=== PATIENT | male | born 1945 | race Caucasian/White ===

== ENCOUNTER 2017-12-31 05:32 | Day surgery (SDC) | payer MEDICARE ==
[~2017-12-31] VITALS: Ht 180.3 cm; Wt 106.6 kg
[~2017-12-31 05:32] MED LIST: BAYER ASPIRIN E81 MG PO; CIPRO250 MG PO; CRESTOR20 MG PO; CRESTOR5 MG PO; FISH OIL1200 M1 PO; FLAGYL500 MG PO; LIPITOR20 MG PO; LISINOPRIL20 MG PO; LOSARTAN POTASS50 MG PO; PERCOCET1 TA4 PO; PLAVIX75 MG PO; PRILOSEC20 MG PO; PROTONIX40 M2 PO; VITAMIN D31000 UNI1 PO; [UNRECOGNIZED DRUG - OTHER] PO
[2017-12-31 08:19] VITALS: BP 119/69
== END 2017-12-31 08:27 | disposition home or self-care (01) ==
LOC: ENDO 05:32
PROVIDERS: ATTEND Surgery
PROC: 0DBN8ZX Excision of Sigmoid Colon, Via Natural or Artificial Opening Endoscopic, Diagnostic (ICD-10-PCS; principal; 2017-12-31)
DX: Z12.11 Encounter for screening for malignant neoplasm of colon (principal); D12.5 Benign neoplasm of sigmoid colon; Q43.8 Other specified congenital malformations of intestine; I10 Essential (primary) hypertension; I25.10 Atherosclerotic heart disease of native coronary artery without angina pectoris; E78.5 Hyperlipidemia, unspecified; K57.30 Diverticulosis of large intestine without perforation or abscess without bleeding; Z95.1 Presence of aortocoronary bypass graft

== ENCOUNTER → 2018-06-15 | Outpatient (REF) | payer MEDICARE | END | disposition home or self-care (01) | LOC: ULTRASND 09:24 | PROVIDERS: ATTEND Internal Medicine | DX: M79.604 Pain in right leg (principal); I73.9 Peripheral vascular disease, unspecified ==

== ENCOUNTER 2020-09-06 20:57 | Inpatient (IN) | payer MEDICARE ==
[~2020-09-06] VITALS: Ht 177.8 cm; Wt 101.0 kg
--- NOTE | 2020-09-06 21:15 | NUR ---
PATIENT TO ROOM FOR TRIAGE.
--- NOTE | 2020-09-06 21:41 | NUR ---
PATIENT RESTING QUIETLY,STATES HE FEELS BETTER. AT BEDSIDE.
[2020-09-06 21:45] LABS: HEMATOCRIT 38.8 % (39.0-50.0); HEMOGLOBIN 12.5 g/dl (14.0-18.0); IMMATURE GRANULOCYTES 0.5 % (0.0-5.0); MEAN CORPUSCULAR HGB CONC 32.2 g/dL CAL (32.0-36.0); NEUT# 3.25 thou/uL (1.82-7.42); RED BLOOD COUNT 4.31 mill/uL (4.70-6.10); RED CELL DISTRI WIDTH 13.2 % (11.5-15.5)
[2020-09-06 21:57] LABS: ALBUMIN 3.4 g/dL (3.2-5.0); ALKALINE PHOSPHATASE 79 u/l (38-126); ANION GAP 11 (6-22 (CALC)); BILIRUBIN, TOTAL 0.5 mg/dL (0.0-1.4); BUN 20 mg/dL (8-23); BUN/CREATININE RATIO 14 (12-20 (CALC)); CARBON DIOXIDE 23 mmol/l (22-30); CHLORIDE 106 mmol/l (95-108); CREATININE 1.5 mg/dL (0.7-1.3); GFR 46 ML/MIN (>=60 (CALC)); GFR FOR AFR.AMER. 55 ML/MIN (>=60 (CALC)); POTASSIUM 4.4 mmol/l (3.5-5.1); SODIUM 135 mmol/l (137-146); TOTAL PROTEIN 6.6 g/dL (6.3-8.2)
[2020-09-06 21:59] LABS: D-DIMER 2.31 mg/L (0.19-0.60)
[2020-09-06 22:00] LABS: INTERNATIONAL NORMALIZED RATIO 1.1 RATIO (0.7-1.3)
[2020-09-06 22:03] LABS: SGOT/AST 71 u/l (19-48)
[2020-09-06 22:09] LABS: MYOGLOBIN 273 ng/mL (0 - 121)
--- NOTE | 2020-09-06 22:33 | NUR ---
PT IV BOLUS STARTED. RECHECK OF TEMP WNL. NO S/S OF DISCOMFORT.
[2020-09-07] MEDS ORDERED: COQ-1030 M1 PO (00:51)
[2020-09-07] MEDS ORDERED: B121000 MC1 (00:52)
--- NOTE | 2020-09-07 00:57 | NUR ---
PT RESTING. AT BEDSIDE. VSS. MEDS RECONCILED. ATTEMPTED TO CALL REPORT. SONIA WILL CALL BACK.
--- NOTE | 2020-09-07 01:11 | NUR ---
REPORT TO SONIA/MED-SURG.
--- NOTE | 2020-09-07 01:15 | NUR ---
PT TO FLOOR VIA W/C WITH O2 @ 4 LPM NC. TO FLOOR BY WILMA ALMEIDA. TO HOME. AWARE OF VISITING RESTRICTIONS.
[2020-09-07 01:25] VITALS: BP 111/80
--- NOTE | 2020-09-07 01:45 | NUR ---
PHYSICAL ASSESMENT COMPLETE. PT CURRENTLY DENIES PAIN OR DISCOMFORT. SCHEDULED MEDICATIONS AND PRN MEDICATION ADMINISTERED, SEE E-MAR. PT PLACE ON 4 LITERS OF O2 AND STATING AT 92 %. PT DENIES ANY NEEDS AT THIS TIME. PLAN OF CARE REVIEWED, PT DENIES QUESTIONS, VERBALIZES UNDERSTANDING. ITEMS WITHIN REACH, BED LOCKED IN LOW POSITION W/ BEDRAILS UP X2. CALL KIRK WITHIN REACH, AGREES TO CALL PRN.
--- NOTE | 2020-09-07 04:01 | NUR ---
PT RESTING IN BED, NO SIGNS OF DISTRESS NOTED, PT VOICES NO NEEDS OR COMPLAINTS AT THIS TIME. CALL LIGHT IN REACH, CONTINUE TO MONITOR.
[2020-09-07 04:30] VITALS: BP 114/58
[2020-09-07 08:59] VITALS: BP 118/61
--- NOTE | 2020-09-07 08:59 | NUR ---
PT SITTING IN BED. A&O X3. O2 VIA NC @4L IN PLACE. O2 SUSTAINING 85-86%. EXTENSION TUBING REMOVED. O2 CHANGED TO HIGH FLOW AT 9L HUMIDIFIED. PT SUSTAINING O2 AT 90-92% . NON PRODUCTIVE COUGH NOTED WITH EXCERTIONAL SOB. PT ENCOURAGED TO PRONE, PT VERBALIZED UNDERSTANDING. URINAL GIVEN TO PT TO CONSERVE ENERGY. ASSESSMENT COMPLETED. DISCUSSED POC. CALL LIGHT IN REACH. CONTINUE TO MONITOR.
--- NOTE | 2020-09-07 09:40 | NUR ---
DR HUNT AND Jesse CASSIDY APRN AT BEDSIDE DISCUSSING POC
--- NOTE | 2020-09-07 11:14 | NUR ---
pt sitting in bed. no distress noted. continue to monitor.
[2020-09-07 15:15] VITALS: BP 105/52
[2020-09-07 19:20] VITALS: BP 117/63
--- NOTE | 2020-09-07 20:00 | NUR ---
UPON ENTERING ROOM PT LAYING IN BED, WATCHING TV. PHYSICAL ASSESMENT COMPLETE. RESPIRATION REGULAR AND UNLABORED. LUNG SOUNDS CLEAR AND SLIGHLTY DIMINISHED. SP02 92% ON 02 @ 9L/MIN VIA NC. PT REPORTS NON-PRODUCTIVE COUGH. PRN ROBITUSSIN ADMINISTERED WITH SCHEDULED MEDICATIONS. SEE E-MAR. DENIES PAIN OR DISCOMFORT AT THIS TIME. RESPIRATIONS REGULAR AND UNLABORED. TEACHING DONE ON INCENTIVE SPIROMETER. PT DEMONSTRATES PROPER USE. PLAN OF CARE REVIEWED, PT VERBALIZES UNDERSTANDING AND DENIES QUESTIONS. DENIES NEEDS AT THIS TIME. CALL KIRK WITHIN REACH, AGREES TO CALL PRN.
[2020-09-08] VITALS (11 sets, daily range): BP systolic 112–162; BP diastolic 57–79
--- NOTE | 2020-09-08 00:10 | NUR ---
PT REPORTS SOB, SAYING "I CAN'T BREATHE". SPO2 79%. PT EXHIBITS INCREASE WORK OF BREATHING. PT REPORTS SYMPTOMS BEGAN WHEN SIITTING UP TO SIDE OF BED TO USE URINAL. O2 INCREASED TO 12L/MIN VIA HIGH FLOW NASAL CANNULA. PT ENCOURAGED TO DEEP BREATHE. SPO2 INCREASES TO 91-92%. EXHIBITS DECREASE WORK OF BREATHING. RESPIRATIONS REGULAR AND UNLABORED. PT NO LONGER VOICES DISTRESS. PT ENCOURAGED TO LAY IN PRONE POSITION. PT DECLINES. PT AGREES TO CALL PRN, CALL KIRK WITHIN REACH.
--- NOTE | 2020-09-08 04:31 | NUR ---
PT REQUESTS ASSISTANCE TO SIT UP ON SIDE OF BED TO USE URINAL. PT ASSITED TO SIT UP. 500ML DARK YELLOW URINE EMPTIED FROM URINAL. PT BECOMES SOB. ATTEMPTS TO LAY PRONE. PT UNABLE TO TOLERATE AND RETURNS TO SUPINE POSITION. HOB ELEVATED. PT'S SPO2 IN THE 70s FOR SEVERAL MINUTES BEFORE BEGINING TO INCREASE AND SOB BEGINNING TO LESSEN. SPO2 UP TO 90-91%. PT COUGHING A LOT, ROBITUSSIN ADMINISTERED. SEE E-MAR.
[2020-09-08 05:35] LABS: HEMATOCRIT 44.4 % (39.0-50.0); HEMOGLOBIN 14.2 g/dl (14.0-18.0); IMMATURE GRANULOCYTES 0.8 % (0.0-5.0); MEAN CELL VOLUME 91.2 fL CALC (80.0-100.0); MEAN CORPUSCULAR HGB 29.2 pG CALC (26.0-32.0); NEUT# 10.68 thou/uL (1.82-7.42); RED BLOOD COUNT 4.87 mill/uL (4.70-6.10); RED CELL DISTRI WIDTH 13.4 % (11.5-15.5)
[2020-09-08 05:46] LABS: ALBUMIN 3.4 g/dL (3.2-5.0); ALKALINE PHOSPHATASE 103 u/l (38-126); BILIRUBIN, TOTAL 0.6 mg/dL (0.0-1.4); BUN 30 mg/dL (8-23); BUN/CREATININE RATIO 25 (12-20 (CALC)); CARBON DIOXIDE 26 mmol/l (22-30); CHLORIDE 109 mmol/l (95-108); CREATININE 1.2 mg/dL (0.7-1.3); GFR 59 ML/MIN (>=60 (CALC)); GFR FOR AFR.AMER. > 60 ML/MIN (>=60 (CALC)); POTASSIUM 4.3 mmol/l (3.5-5.1); TOTAL PROTEIN 6.4 g/dL (6.3-8.2)
[2020-09-08 05:48] LABS: ANION GAP 11 (6-22 (CALC)); SGOT/AST 158 u/l (19-48); SODIUM 142 mmol/l (137-146)
--- NOTE | 2020-09-08 07:44 | NUR ---
RECIEVED REPORT FROM WILMA UMANA. PT RESTING IN SEMI FOWLERS POSITION UPON ENTERING ROOM. INTRODUCED SELF TO PT AND DISCUSSED POC. PT IS A/O X3. ASSESSMEN AND VITALS COMPLETED. RESPIRATIONS ARE EVEN AND UNLABORED ON 12L HIGH FLOW NC. LUNG SOUNDS ARE CLEAR BUT DIMINISHED.I.S AT BEDSIDE. PT EDUCATED ON USAGE, PT VERBALIZED UNDERSTANDING. HEART RHYTHM IS NORMAL. BOWEL SOUNDS ARE ACTIVE IN ALL QUADRANTS.#20G IN RAC FLUSHED, SITE APPEARS HEALTHY AND PATENT. PT COMPLAINS OF NAUSESA, PT TO BE MEDICATED PER EMAR. PT DENIES OF ANYOTHER DISCOMFORTS. ALL SAFTEY PRECAUTIONS ARE IN PLACE WITH CALL LIGHT IN REACH. AIR/CONTACT PRECAUTIONS IN PLACE. WILL CONTINUE TO MONITOR
--- NOTE | 2020-09-08 10:15 | NUR ---
CPAP AND HEARING AIDS BROUGHT IN BY FAMILY. PLACED AT BEDSIDE
--- NOTE | 2020-09-08 11:03 | NUR ---
PT OXYGEN SAT 88% ON 12L HIGH FLOW NC. OXYGEN INCREASED TO 15L HIGH FLOW NC. OXYGEN SAT 92%. PT DENIES ANY INCREASE SOB AT THIS TIME. MD TO BE NOTFIED. ALL SAFETY PRECAUTIONS ARE IN PLACE WITH CALL LIGHT IN REACH. WILL CONTINUE TO MONITOR.
--- NOTE | 2020-09-08 11:26 | NUR ---
ESPINOZA SALVADORRP NOTIFIED OF PT OXYGEN SAT. ORDERS FOR ABG. RESPIRATIONS REMAINS EVEN AND UNLABORED ON 15L NC. PT DENIES OF ANY INCREASED SOB OR DISCOMFORTS. IV ANTIBIOTICS INFUSING WITH EASE, SITE APPEARS HEALTHY AND PATENT. ALL SAFETY AND IAOLATION PRECAUTIONS ARE IN PLACE WIHT CALL LIGHT IN REACH. WILL CONTINUE TO MONITOR
--- NOTE | 2020-09-08 12:55 | NUR ---
DR HUNT AT BEDSIDE DISCUSSING POC. ORDERS FOR TRANSFER TO ICU
--- NOTE | 2020-09-08 12:57 | NUR ---
ICU BED 6 OBTAINED FOR PT TRANSFER.
--- NOTE | 2020-09-08 13:24 | NUR ---
REPORT CALLED TO AYAH LIM.
--- NOTE | 2020-09-08 13:30 | NUR ---
PT TRANSPORTED TO BED 6 ICU VIA BED IN STABLE CONDITION ACCOMPAINED BY MANAGER PRIVACY AND SASCHA SAMS. ALL BELONGINGS TRANSPORTED WITH PT INCLUDING CPAP AND HEARING AIDS.
--- NOTE | 2020-09-08 13:35 | NUR ---
RECEIVED PT FROM MED SURG, VIA BED WITH 15 LITERS OF O2. TOLERATING WELL. FAMILY NOTIFIED BY PT. CONTINUE TO OBSERVE AND MONITOR.
--- NOTE | 2020-09-08 14:30 | NUR ---
PT TRANSFERRED TO A CHAIR, AFTER ANTIONETTE Jimenez FROM HOME [facility] CAME AND BROUGHT ONE. FAMILY INQUIRED ABOUT A CHAIR. INFORMED THE PT SOON A CHAIR WAS AVAILABLE THEN HE WOULD GET THE CHAIR. PT VERBALIZED UNDERSTANDING.
--- NOTE | 2020-09-08 16:24 | NUR ---
PT IS SITTING IN THE CHAIR NO DISTRESS NOTED. IV SITE IS FREE FROM REDNESS OR EDEMA. O2 @ 15 LITERS HIGH FLOW.
--- NOTE | 2020-09-08 17:50 | NUR ---
PT RESTING WITH EYES CLOSED NO DISTRESS NOTED. IV SITE IS FREE FROM REDNESS OR EDEMA.
--- NOTE | 2020-09-08 19:55 | NUR ---
PATIENT IS AWAKE, ORIENTED X4, IS HARD OF HEARING. NURSE ASSESSMENT PERFORMED. ENCOURAGED PURSED LIP BREATHING AND PRONE POSITIONE, PATIENT WAS ASSISTED WITH PRONE POSITIONING. POC DISCUSSED. PATIENT DOES DESAT TO 64% WITH EXERTION, BECOMES SOB, IS ON 15 L/MIN HIGH FLOW NC H. NO COMPLAINTS OF PAIN. DOES HAVE A NONPRODUCTIVE COUGH. LAC 20 G IV INTACT, SALINE LOCKED. SR ON TELEMETRY. BP WNL. POC DISCUSSED. CALL LIGHT WITHIN REACH.
--- NOTE | 2020-09-08 23:15 | NUR ---
PATIENT REPORTED HE CAN NO LONGER LAY PRONE AND LAYS WITH HO 30 DEGREES, HAD COMPLAINED HE COULD NOT SLEEP, SONATA AND ROBITUSSIN GIVEN FOR HIS COUGH. WAS PULLED UP WITH ASSIST X2, IN HIGH AYERS'S, O2 78%, SLOWLY INCREASES TO 80'S, WILL CONTINUE TO MONITOR.
--- NOTE | 2020-09-08 23:31 | NUR ---
CALLED RT MARCELO TO NOTIFY PATIENT'S O2 84%-85%, AFTER LAYING IN HIGH AYERS'S FROM PRONE POSITION, RT MARCELO WILL COME TO ASSESS PATIENT.
--- NOTE | 2020-09-08 23:35 | NUR ---
RT MARCELO IN ROOM
--- NOTE | 2020-09-08 23:56 | NUR ---
RT MARCELO PLACED PATIENT ON PATIENT'S CPAP FROM HOME, O2 NOW 94%.
[2020-09-09] VITALS (7 sets, daily range): BP systolic 108–158; BP diastolic 55–75
--- NOTE | 2020-09-09 01:41 | NUR ---
PATIENT GETS OUT OF BED, PULLS ALL OF WINDOWS 7 DEPLOYMENT LEAD EQUIPMENT OFF, PULLS IV OFF. HE WAS SOB AND TACHYPNEIC. HAD TAKEN HIS CPAP OFF. HE REPORTED HE HAD TO "PEE," AND NEEDED TO GET UP. PATIENT USED THE URINAL. I EXPLAINED TO HIM THE IMPORTANCE OF USING CALL LIGHT FOR ASSISTANCE AT ALL TIMES, ESPECIALLY BECAUSE HE DESATS VERY QUICKLY TO 70'S, WE HAVE TO MAKE SURE HE HAS OXYGEN SUPPORT. PATIENT UNDERSTNDS AND AGREES. NEW IV PLACED ON R-HAND 22 G, SLAINE LOCKED. URINAL AT BEDSIDE TABLE WTHIN REACH, CPAP PLACED BACK ON, O2 SAT NOW 93%. NO OTHER NEEDS AT THSI TIME. CALL LIGHT WITHIN REACH.
--- NOTE | 2020-09-09 03:44 | NUR ---
PATIENT TAKES OFF CPAP MASK, DESATS TO 60'S. COMPLAINS OF NAUSEA, ZOFRAN GIVEN. NAUSEA HAS DECREASED, PATIENT AGREES TO PLACE CPAP MASK ON SINCE HE WAS ONLY SATTING 85% ON HIGH FLOW NC AT 15 L/MIN.
[2020-09-09 05:53] LABS: HEMATOCRIT 42.8 % (39.0-50.0); HEMOGLOBIN 13.3 g/dl (14.0-18.0); IMMATURE GRANULOCYTES 1.1 % (0.0-5.0); MEAN CELL VOLUME 91.1 fL CALC (80.0-100.0); MEAN CORPUSCULAR HGB 28.3 pG CALC (26.0-32.0); MEAN CORPUSCULAR HGB CONC 31.1 g/dL CAL (32.0-36.0); NEUT# 9.86 thou/uL (1.82-7.42); RED BLOOD COUNT 4.7 mill/uL (4.70-6.10); RED CELL DISTRI WIDTH 13.4 % (11.5-15.5)
--- NOTE | 2020-09-09 06:16 | NUR ---
PATIENT IS ON VAPOTHERM NOW, HE REQUESTED TO BE OFF THE CPAP. SETTINGS ARE 30 LITERS/MIN AND 100% FIO2, O2 SAT 97%. NO OTHER NEEDS OR RQUESTS AT THIS TIME.
[2020-09-09 06:20] LABS: ALKALINE PHOSPHATASE 109 u/l (38-126); ANION GAP 10 (6-22 (CALC)); BILIRUBIN, TOTAL 0.7 mg/dL (0.0-1.4); BUN 31 mg/dL (8-23); BUN/CREATININE RATIO 29 (12-20 (CALC)); CARBON DIOXIDE 29 mmol/l (22-30); CHLORIDE 108 mmol/l (95-108); CREATININE 1.1 mg/dL (0.7-1.3); GFR > 60 ML/MIN (>=60 (CALC)); GFR FOR AFR.AMER. > 60 ML/MIN (>=60 (CALC)); POTASSIUM 4.9 mmol/l (3.5-5.1); SGOT/AST 111 u/l (19-48); SODIUM 143 mmol/l (137-146); TOTAL PROTEIN 5.9 g/dL (6.3-8.2)
--- NOTE | 2020-09-09 07:18 | NUR ---
SPOKE WITH [employer]'S DAUGHTER INQUIRED ABOUT PT.
--- NOTE | 2020-09-09 07:25 | NUR ---
PT PLACED IN A CHAIR. FAMILY CALLING AND PT WILL CALL BACK. BASHIR RESPIRATORY IN TO MOVE THE VAPOTHERM.
--- NOTE | 2020-09-09 07:25 | NUR ---
ASSESSMENT IS COMPLTED; IV SITE IS FREE FROM REDNESS OR EDEMA. HR IS REG,PULSE ARE STRONG X4, ABD IS SOFT WITH ACTIVE BS. BREATH SOUNDS ARE CLEAR AND DMINISHED. O2 WITH VAPOTHERM AT 30%-100%. CONTINUE TO OSBERVE AND MONITOR.
--- NOTE | 2020-09-09 09:25 | NUR ---
DR HUNT IN TO VISIT WITHPT
--- NOTE | 2020-09-09 10:05 | NUR ---
PT CONTINUES IN THE CHAIR. NO DISTRESS NOTED. IV SITE IS FREE FROM REDNESS OR EDEMA.
--- NOTE | 2020-09-09 12:15 | NUR ---
PT IS RELAXING IN BED WITH NO DISTRESS NOTED IV SITE IS FREE FROM REDNESS OR EDEMA.
--- NOTE | 2020-09-09 13:05 | NUR ---
REPORT REC FROM GWEN POON
--- NOTE | 2020-09-09 13:25 | NUR ---
PT CARE RESUMED BY THIS UNDERGROUND TRUCK OPERATOR. A&O X3. NO DISTRESS NOTED. FASH SLIGHTLY FLUSHED IN APPEARANCE, CURRENTLY AFEBRILE. O2 VIA NC @30L 100% VAPOTHERM IN PLACE. NO NEEDS AT THIS TIME. CALL LIGHT IN REACH. CONTINUE TO MONITOR.
--- NOTE | 2020-09-09 17:34 | NUR ---
PT SITTING IN RECLINER. NO NEEDS OR DISTRESS AT THIS TIME. CALL LIGHT IN REACH. CONTINUE TO MONITOR.
--- NOTE | 2020-09-09 19:20 | NUR ---
sitting in bedside chair. nad. o2 cont per vapotherm. cafeteria monitor shows sinus rhythm hr 76. #22 rt hand saline lock. voided per urinal. fall & air/contact precautions cont. assisted to bed per request. pt became sob & o2 sat dropped to 80% with o2 on. after few minutes o2 sat increased to 93%. instructed pt about prone position. pt declined @ present but verbalized understanding.
--- NOTE | 2020-09-09 20:45 | NUR ---
assisted pt to prone position per request.
--- NOTE | 2020-09-09 22:00 | NUR ---
pt requested to void then sleep on back. stood to void then back to bed. o2 sat dropped to 80%. rt notified & checked pt. after few minutes of rest o2 increased to 93%.
[2020-09-10] VITALS (10 sets, daily range): BP systolic 116–141; BP diastolic 58–73
--- NOTE | 2020-09-10 00:01 | NUR ---
eyes closed. nad. desats with any activity. environmental monitoring specialist shows sinus rhythm pjcs hr 70.
--- NOTE | 2020-09-10 02:00 | NUR ---
resting quietly. o2 cont per vapotherm. quality assurance monitor shows sinus rhythm pjc's hr 62.
--- NOTE | 2020-09-10 03:45 | NUR ---
stood to void then returns to bed. desats quickly to 82%. after resting pulse ox returns to 93%.
--- NOTE | 2020-09-10 04:35 | NUR ---
pulse ox shows 65%. entered pts room. pt sitting on side of bed. pt had voided per urinal. nasal cannula was on floor & was replaced. after resting for few minutes pulse ox was 91%. pt requested to get in chair. assisted to chair. pulse ox dropped to 84%. after resting pulse ox increased to 93%. instructed pt strongly to keep o2 on @ ALL times. pt verbalized understanding.
--- NOTE | 2020-09-10 05:30 | NUR ---
lab here. blood drawn.
[2020-09-10 05:59] LABS: HEMATOCRIT 41.6 % (39.0-50.0); HEMOGLOBIN 13.3 g/dl (14.0-18.0); IMMATURE GRANULOCYTES 0.9 % (0.0-5.0); MEAN CELL VOLUME 90.2 fL CALC (80.0-100.0); MEAN CORPUSCULAR HGB 28.9 pG CALC (26.0-32.0); NEUT# 8.97 thou/uL (1.82-7.42); RED BLOOD COUNT 4.61 mill/uL (4.70-6.10); RED CELL DISTRI WIDTH 13.4 % (11.5-15.5)
[2020-09-10 06:18] LABS: ANION GAP 11 (6-22 (CALC)); BUN 37 mg/dL (8-23); BUN/CREATININE RATIO 37 (12-20 (CALC)); C-REACTIVE PROTEIN 6.5 mg/dL (0-0.9); CARBON DIOXIDE 29 mmol/l (22-30); CHLORIDE 106 mmol/l (95-108); GFR > 60 ML/MIN (>=60 (CALC)); GFR FOR AFR.AMER. > 60 ML/MIN (>=60 (CALC)); POTASSIUM 4.7 mmol/l (3.5-5.1); SODIUM 141 mmol/l (137-146)
--- NOTE | 2020-09-10 06:58 | NUR ---
REPORT REC FROM MIRZA POON
--- NOTE | 2020-09-10 07:00 | NUR ---
PT SITTING IN RECLINER. A&O X3. NO DISTRESS NOTED. O2 VIA NC @30 L 100% HUMIDIFIED VAPOTHERM IN PLACE O2 SUSTAINING 92-96%. EXCERTIONAL SOB NOTED AND ALSO REPORTED. CLEAR/DIMINISHED BREATH SOUNDS HEARD DURING AUSCULTATION. FACE SLIGHTLY FLUSHED IN APPEARANCE BUT AFEBRILE AT THIS TIME.#22 RH PATENT WITH HEALTHY APPEARANCE. PT DENIES ANY PAIN AT THIS TIME. TRACE EDEMA NOTED TO BILATERAL FEET, PT REPORTS THIS FINDING "NORMAL" FOR HIM. ASSESSMENT COMPLETED. DISCUSSED POC. CALL LIGHT LEFT WITHIN REACH. CONTINUE TO MONITOR.
--- NOTE | 2020-09-10 09:33 | NUR ---
PT SITTING IN RECLINER. NO DISTRESS NOTED. CALL LIGHT IN REACH, CONTINUE TO MONITOR.
--- NOTE | 2020-09-10 09:57 | NUR ---
DR HUNT AT BEDSIDE
--- NOTE | 2020-09-10 12:20 | NUR ---
PT SITTING IN RECLINER, PT INSTRUCTED TO DEEP BREATHE DUE TO LOW O2 READING. PT REPORTS EXCERTIONAL SOB WHEN HE GOT UP OUT OF THE BED INTO THE RECLINER. O2 CURRENTLY NOW 95%. PT REPORTS FEELING "LESS SOB NOW". CONTINUE TO MONITOR.
--- NOTE | 2020-09-10 16:23 | NUR ---
PT CURRENTLY 85% WITH VAPOTHERM . DAYANARA RT AT BEDSIDE. PT UP TO 40L WITH 100% VAPOTHERM. PT CURRENTLY 92%. WILL CONTINUE TO MONITOR
--- NOTE | 2020-09-10 16:26 | NUR ---
INCREASED FLOW TO 40L DUE TO SATS RUNNING IN THE 80'S. SPO2 INCREASED TO 92% AFTER CHANGE.
--- NOTE | 2020-09-10 18:05 | NUR ---
PT SITTING IN RECLINER EATING DINNER. NO DISTRESS NOTED. O2 SUSTAINING 98% WITH 40 L 100%. CALL LIGHT IN REACH. CONTINUE TO MONITOR.
--- NOTE | 2020-09-10 20:00 | NUR ---
PT SITTING IN CHAIR WATCHING TV. DENIES PAIN, SOB, OR DISTRESS. PT ASKED TO GO BACK IN BED. WHEN TRANSFERRING TO BED PT STARTING CONTINUOUSLY COUGHING AND DESATTED TO 65%. NURSE COACHED PT TO SLOW HIS BREATHING AND TO INHALE THROUGH HIS NOSE WITH SUPPORT OF THE OXYGEN. IT TOOK HIM APPROXIMATELY 15 MINS TO RECOVER SITTING UPRIGHT ON SIDE OF BED. EDUCATED PT ON THE IMPORTANCE OF PRONE POSITION AND ENCOURAGED HIM TO TAKE IT ONE STEP AT A TIME (SITTING, SIDEWAYS, PRONE), TO HELP KEEP SATS UP. PT VERBALIZED UNDERSTANDING STATED HE WOULD TRY. ASSESSMENT WAS COMPLETED, URINAL WAS EMPTIED, AND CALL LIGHT WITHIN REACH. WILL CONTINUE TO MONITOR.
--- NOTE | 2020-09-10 22:00 | NUR ---
PT RESTING IN BED PARTIALLY SIDE LAYING, MINIMAL COUGHING AND NO S/S OF DISTRESS. PT HAS NOT ATTEMPTED PRONE POSITION AT THIS TIME. SATS WNL, WITH HOB AT 45*. PT NIGHTLY MEDICATION ADMINISTERED. CALL LIGHT WITHN REACH. WILL CONTINUE TO MONITOR.
[2020-09-11] VITALS (43 sets, daily range): BP systolic 92–214; BP diastolic 57–118
--- NOTE | 2020-09-11 | NUR ---
PT RESTING IN BED, AWAKENED SUDDENLY AND WAS EXCESSIVELY COUGHING WHICH MADE HIM SOB. NURSE CHECKED ON HIM AND HE CALMED DOWN, PT ALSO INFORMED NURSE THAT HE WAS A BIT NAUSEOUS. MEDICATED PT WITH ZOFRAN AND ROBITUSSIN. PT SEEMED TO RELAX AND COUGHING CURRENTLY STOPPED. CALL LIGHT WITHIN REACH. WILL CONTINUE TO MONITOR.
--- NOTE | 2020-09-11 02:00 | NUR ---
PT SEEMS TO BE STRUGGLING WITH ANXIETY OF BEING IN THE HOSPITAL. NURSE SAT WITH PT FOR A SHORT TIME AND DISCUSSED PARTS OF WHY. PT WORRIED ABOUT NOT FEELING BETTER, CONTINUOUSLY LOOKS AT THE VITALS MONITOR, CAN NOT GET COMFORTABLE, AND WHY HE IS COUGHING SO MUCH. NURSE ASKED IF PT TAKES ANYTHING FOR ANXIETY AT HOME, STATED "NO". EDUCATED PT ABOUT POSSIBLY GETTING SOMETHING ORDERED FROM THE DR TO HELP HIM RELAX AND IT WOULD HELP WITH HIS BREATHING. PT DECLINED, HE WANTED TO GO BACK INTO THE RECLINER. PT IS CURRENTLY RESTING IN RECLINER. CALL LIGHT WITHIN REACH. WILL CONTINUE TO MONITOR.
--- NOTE | 2020-09-11 04:00 | NUR ---
PT STILL RESTING IN RECLINER, SEEMS TO DO BETTER IN THE RECLINER THAN IN BED. PT CONTINUES TO COUGH ON AND OFF, TALKED WITH PT ABOUT PUTTING HIS MASK ON TO HELP REDUCE THE INHALATION OF COLD AIR WHICH CAN MAKE HIM COUGH. PT STATED HE WOULD GIVE IT A TRY. CALL LIGHT WITHIN REACH. WILL CONTINUE TO MONITOR.
--- NOTE | 2020-09-11 06:00 | NUR ---
PT CURRENTLY RESTING AWAKE IN RECLINER. COUGHING SPELLS HAVE DECREASED SINCE PT USE OF MASK TO REDUCE COLD AIR INHALATION. EDUCATED PT ON THE IMPORTANCE OF KEEPING HIS NC ON. PT HAS A TENDENCY TO TAKE IT OFF WHEN PANICED STATING "IT'S HARD TO BREATHE WHEN IT IS ON SOMETIMES". EDUCATED PT ON THE NEXT STEPS OF HELPING HIM BREATH BETTER ( BIPAP, INTUBATION, RESTRAINTS IF HE KEEPS TAKING IT OFF). ALSO DISCUSSED ANXIETY MEDS AGAIN DUE TO THE FACT HE SEEMS UNEASY AND RESTLESS. HE VERBALIZED UNDERSTANDING AND AGREED TO TRY SOMETHING FOR ANIXETY. WILL RELAY INFORMATION TO NURSE ASSUMING CARE. WILL CONTINUE TO MONITOR.
--- NOTE | 2020-09-11 06:45 | NUR ---
REPORT RECEIVED FROM ELLE DILLON. CARE ASSUMED.
--- NOTE | 2020-09-11 07:20 | NUR ---
PT SITTING UP IN RECLINER AT BEDSIDE. PT IS ALERT AND ORIENTED X3. SHIFT ASSESSMENT COMPLETED AT THIS TIME. IV PATENT X1. PT O2 SATS 96% ON VAPO THERM 40L 100%. DECREASED TO 30L. PT O2 SATS REMAIN >92%. INSTRUCTED PT ON IMPORTANCE OF INCENTIVE SPIROMETER. PT VERBALIZED UNDERSTANDING. CALL LIGHT IN REACH. WILL CONTINUE TO MONITOR.
--- NOTE | 2020-09-11 07:58 | NUR ---
O2 SATS NOTED TO BE DECREASING. RT PHONED FOR EVALUATION. WILL CONTINUE TO MONTIOR.
--- NOTE | 2020-09-11 08:30 | NUR ---
DR HUNT AT BEDSIDE AT THIS TIME.
--- NOTE | 2020-09-11 08:41 | NUR ---
RT AT BEDSIDE TO PLACE PT ON BIPAP.
--- NOTE | 2020-09-11 08:59 | NUR ---
CALLED TO PT ROOM TO ASSESS OXYGENATION. PT STATES THAT HE WARES HOME BIPAP EVERY NIGHT DUE TO SLEEP APENEA. AT THIS TIME PT IS REQUIRING HIGH LEVELS OF OXYGEN UNABLE TO DELIVE IN HOME BIPAP. PT PLACED ON V60 WITH ORDERED SETTINGS 08/13/60%. PT TOLERATING WELL. RN ISABEL AWARE. PT RESTING IN BED.
--- NOTE | 2020-09-11 09:08 | NUR ---
DAUGHTER PHONED FOR UPDATE AT THIS TIME. UPDATE PROVIDED
--- NOTE | 2020-09-11 10:00 | NUR ---
PT RESTING ON BIPAP AT THIS TIME. PT ASKING TO BE TAKEN OFF. EXPLAINED IMPORTANCE FOR REST AND WILL REMOVE BIPAP AT LUMCH TIME AMD PLACE ON VAPOTHERM. PT AGREEABLE. CALL LIGHT IN REACH. WILL CONTINUE TO MONITOR.
--- NOTE | 2020-09-11 11:00 | NUR ---
PT OFF OF BIPAP AT THIS TIME PER REQUEST AND PLACED BACK ON VAPOTHERM
--- NOTE | 2020-09-11 11:54 | NUR ---
2 ATTEMPTS FOR IV ACCESS BY Vish KRAUSE. 1 ATTEMPT BY THIS NURSE. PT COUGHING AND UNABLE TO MAINTAIN EXTREMITY WHILE IV ATTEMPTS ARE MADE. WILL ATTEMPT IV ACCESS AFTER PATIENT IS ABLE TO SETTLE. PT ALSO NOTED TO BE RED IN FACE AND HAVE LABORED BREATHING. ASKED IF PT WAS SOB. PT STATES YES. O2 SATS 84% ON 100%FIO2 AND 40L VAPOTHERM. WILL HAVE RT OBTAIN ABG. EXPLAINED TO PT THAT HE MAY NEED TO GO BACK ON BIPAP DEPENDING ON ABG RESULTS.
--- NOTE | 2020-09-11 12:00 | NUR ---
RT AT BEDSIDE FOR ABG
--- NOTE | 2020-09-11 12:17 | NUR ---
DR HUNT NOTIFIED OF ABG RESULTS AND LABORED BREATHING. DISCUSSED PATIENT STATUS AND VITALS. IT WAS DECIDED AT THIS TIME THAT PATIENT WOULD BE REQUIRING INTUBATION AND POSSIBLY TRANSFERRED.
--- NOTE | 2020-09-11 12:25 | NUR ---
THIS NURSE INTO ROOM. RT PLACED PT ON BIPAP. DISCUSSED AT LENGTH THAT MD HAD BEEN NOTIFIED AND THAT AT THIS TIME PT NEEDS TO BE INTUBATED. PT REQUESTS THAT IT IS DISCUSSED WITH HIS FAMILY.
--- NOTE | 2020-09-11 12:30 | NUR ---
PHONED NEXT OF KIN GORGE HARDY TO DISCUSS PLAN OF CARE TO INCLUDE INTUBATION, POSSIBILITY OF TRANSFER. GORGE STATES THAT LORENZA HAM IS WANTING TO PHONE DR BRISNEO'S OFFICE TO DISCUSS. EXPLAINED IMPORTANCE OF NON EMERGERGENT INTUBATION. GORGE VERBALIZED UNDERSTANDING.
--- NOTE | 2020-09-11 12:35 | NUR ---
PT RETURNED TO BIPAP AFTER ABG COMPLETED WITH PO2 55. PT TOLERATING WELL
--- NOTE | 2020-09-11 12:45 | NUR ---
Anthony PEÑA RN PHONED UNIT. GORGE PHONED HIM ASKING FOR OPTIONS AND WANTING TO DISCUSS PLAN. INFORMATION PROVIDED TO
--- NOTE | 2020-09-11 12:47 | NUR ---
RT AT BEDSIDE MAKING ADJUSTMENTS TO BIPAP. ASKED THAT MD BE NOTIFIED.
--- NOTE | 2020-09-11 12:49 | NUR ---
PT PLACED IN AVAPS MODE 20/10 PRESSURE 500VT AND RR 18 DR. HUNT NOTIFIED BY RT DIRECTOR JAZLYN. REPEAT ABG IN ONE HR AND NOTIFY DR. BLANC WITH RESULTS. WILMA LUCIO.
--- NOTE | 2020-09-11 13:05 | NUR ---
RECEIVED CALL FROM GORGE THAT FAMILY IS AGREEABLE WITH TRANSFER. ASKED THAT NORMA PEÑA COME AND TELL PATIENT. CALL PLACED TO NORMA AWAITING FOR HIM TO RETURN TO UNIT.
--- NOTE | 2020-09-11 13:37 | NUR ---
NORMA PEÑA AT BEDSIDE AT THIS TIME DISCUSSING INTUBATION AND POSSIBILITY FOR TRANSFER WITH PATIENT PER FAMILY REQUEST
--- NOTE | 2020-09-11 13:44 | NUR ---
PT AGREEABLE TO INTUBATION. DR HUNT NOTIFIED. ASKED TO NOTIFY ANESTHESIA TO INTUIBATE. RT NOTIFIED WELL.
--- NOTE | 2020-09-11 13:49 | NUR ---
RT AT BEDSIDE FOR ABG DRAW.
--- NOTE | 2020-09-11 14:07 | NUR ---
Sofi MORILLO RN PHONED [facility] TO INTITIATE TRANSFER SPOKE TO GUERLINE. ALL INFO GIVEN.
--- NOTE | 2020-09-11 14:15 | NUR ---
INTUBATION FOLLOWS: 1429- ELISEO CEDEÑO AND SHANNON COPE AT BEDSIDE. CONSENT OBTAINED FOR INTUBATION. 1432- TIME OUT COMPLETED 1433- LIDOCAINE 100MGG GIVEN BY ELISEO CEDEÑO 1434- PROPOFOL 170MCG GIVEN BY ELISEO CEDEÑO 1435- SUCC 100MG GIVEN BY ELISEO CEDEÑO 1437- PT INTUBATED WITH 8.0 ET TUBE @25 LIP LINE VERIFIED WITH AUSCULTATION AND CO2 INDICATOR WITH POSITIVE COLOR CHANGE 1439- PANCURONIUM 10MG GIVEN BY ELISEO CEDEÑO 1440- OG INSERTED AND AUSULTATED 1448- OVERTON 16FR PLACED USING STERILE TACHNIQUE WITH CLEAR YELLOW URINE RETURN NOTED. 1500- R SHONA EYELET PUNCH OPERATOR PLACED 21GAUGE IV TO RAC. 1505- RADIOLOGY AT BEDSIDE FOR STAT CXR.
--- NOTE | 2020-09-11 14:45 | NUR ---
INTUBATION ORDERED BY DR. HUNT PREFORMED BY ANESTHESIA ELISEO AT 14:30. PT INTUBATED ON FIRST ATTEMPT WITH 8.0 ET TUBE. SECURED 23@ LIP. PLACEMENT VERIFIED WITH ETCO2 AND BILATERAL AUSCULTATION. PT PLACED ON VENT WITH ORDERED SETTINGS. - AC 18/500/6/100% SPO2 99% PT STABLE HR 77 RR 18 WILL REPEAT ABG IN ONE HR.
--- NOTE | 2020-09-11 15:01 | NUR ---
GUERLINE WITH [facility] PHONED WITH MD ACCEPTANCE. DR WILLIAM SWIFT HAS ACCEPTED AWAITING BED ASSIGNMENT.
--- NOTE | 2020-09-11 15:05 | NUR ---
PHONED RUTH TO NOTIFY OF INTUBATION AND OBTAIN CONSENT FOR TRANSFER TO [facility].
--- NOTE | 2020-09-11 15:40 | NUR ---
RT AT BEDSIDE FOR POST INTUBATION ABG
--- NOTE | 2020-09-11 15:52 | NUR ---
POST INTUBATION ABG COMPLETD. RESULTS RECORDED. RR INCREASED TO 22 AND FIO2 DECREASED TO 60%. REPEAT ABG IN ONE HR.
--- NOTE | 2020-09-11 16:19 | NUR ---
GUERLINE FROM [facility] CALLED WITH BED ASSIGNMENT. 5B BED 7. REPORT TO BE CALLED TO [phone]. JEROME PHONED TO ARRANGE TRANSPORT.
--- NOTE | 2020-09-11 16:26 | NUR ---
CALL PLACED TO [facility] AND SPOKE WITH MARIOLA. PT TO BE TRANSPORTED TO [facility] 5B BED 7. ETA ON [facility] TRANSPORT ARRIVAL 30-45 MINS PER MARIOLA.
--- NOTE | 2020-09-11 16:39 | NUR ---
RT AT BEDSIDE FOR REPEAT ABG
--- NOTE | 2020-09-11 16:45 | NUR ---
UPDATED SPOUSE ON TRANSPORT AND ETA. ROOM NUMBER GIVEN. PHONE NUMBER PROVIDED.
--- NOTE | 2020-09-11 16:58 | NUR ---
[facility] ON UNIT REPORT PROVIDED. CHART PRINTED AND PROVIDED TO ACCOMPANY PATIENT.
--- NOTE | 2020-09-11 17:20 | NUR ---
PT PLACED ON TRANSPORT VENT 500/20/100%. TOLERATING WELL. WILMA HALL AT BEDSIDE
--- NOTE | 2020-09-11 17:22 | NUR ---
REPORT CALLED TO PARKER AT [phone]. [facility] LEFT UNIT WITH PATIENT ON VENT AND STRETCHER..
== END 2020-09-11 17:22 | disposition short-term general hospital (02) | DRG 208 ==
LOC: ED 20:57 → ED-I 09-07 00:15 → ED 09-07 00:27 → MS2 09-07 00:28 → ICU 09-08 13:32
PROVIDERS: Family Medicine; Nurse Practitioner; Physician Assistant; ADMIT Internal Medicine; ATTEND Internal Medicine
PROC: XW033E5 Introduction of Remdesivir Anti-infective into Peripheral Vein, Percutaneous Approach, New Technology Group 5 (ICD-10-PCS; principal; 2020-09-07)
PROC: 5A09357 Assistance with Respiratory Ventilation, Less than 24 Consecutive Hours, Continuous Positive Airway Pressure (ICD-10-PCS; 2020-09-08)
PROC: 5A1935Z Respiratory Ventilation, Less than 24 Consecutive Hours (ICD-10-PCS; 2020-09-11)
PROC: 0BH17EZ Insertion of Endotracheal Airway into Trachea, Via Natural or Artificial Opening (ICD-10-PCS; 2020-09-11)
DX: U07.1 COVID-19 (principal); J12.82 Pneumonia due to coronavirus disease 2019; J96.01 Acute respiratory failure with hypoxia; I10 Essential (primary) hypertension; I25.10 Atherosclerotic heart disease of native coronary artery without angina pectoris; E78.5 Hyperlipidemia, unspecified; J84.10 Pulmonary fibrosis, unspecified; D69.6 Thrombocytopenia, unspecified; K21.9 Gastro-esophageal reflux disease without esophagitis; Z95.5 Presence of coronary angioplasty implant and graft; Z87.891 Personal history of nicotine dependence
CPT/HCPCS: J1650; Q9967